=== PATIENT | female | born 1990 | race Two or more races ===

== ENCOUNTER 2022-11-19 11:07 | Emergency (ER) | payer MEDICAID ==
[~2022-11-19] VITALS: Ht 175.3 cm; Wt 82.0 kg
[2022-11-19 11:14] VITALS: BP 107/77; PULSE 88; RESP 20; TEMP 98; O2SAT 100
[2022-11-19] MEDS ORDERED: METR-167 MT (11:47)
== END 2022-11-19 12:35 | disposition home or self-care (01) ==
LOC: ER 11:07
DX: N76.0 Acute vaginitis (principal)
CPT/HCPCS: 99281